=== PATIENT | male | born 1960 | race Caucasian/White ===

== ENCOUNTER 2018-03-08 09:35 | Emergency (ER) | payer OTHER ==
[~2018-03-08] VITALS: Ht 190.5 cm; Wt 93.0 kg
--- NOTE | 2018-03-08 09:39 | NUR ---
PT STATES HE DOES NOT TAKE HIS BP MEDS UNTIL THE EVENING.
[2018-03-08] MEDS ORDERED: BP MEDICATION (09:49)
--- NOTE | 2018-03-08 09:53 | ED Back Pain ---
General Chief Complaint: Back Problems Stated Complaint: FALL/BACK INJ Nursing Triage Note: ARRIVED VIA AMB WITH COMPLAINTS OF LOWER BACK PAIN AFTER FALLING BACKWARDS WHILE DOING A PT TEST FOR [employer]. Nursing Sepsis Screen: No Definite Risk Source of Information: Patient Exam Limitations: No Limitations History of Present Illness Date Seen by Provider: Mar 08, 2018 Time Seen by Provider: 09:45 Initial Comments Patient presents to ER by private conveyance with chief complaint that while doing a physical fitness test for the [employer] today he was pulling 100 pound weight and as he finished he released it and fell backwards landing squarely on his back. He heard and felt a popping sensation. He's having quite a bit of pain makes a funny lays down to get back up. He does not have a history of back problems nor is he had any surgeries on his back. Is a history of high blood pressure for which he takes lisinopril at night. He had no loss of control of bowel or bladder, saddle anesthesia, numbness, weakness. He took 2 ibuprofen 12 hours ago. This happened approximately 2 hours prior to arrival. Allergies and Home Medications Allergies Coded Allergies: No Known Drug Allergies (Unverified , 03/08/18) Home Medications Cyclobenzaprine HCl 10 Mg Tablet, 10 MG PO Q8H PRN for SPASMS Prescribed by: SWEETIE GRAY on 03/08/18 1052 Patient Home Medication List Home Medication List Reviewed: Yes Review of Systems Constitutional: No chills, No fever EENTM: No hearing loss, No ear pain Respiratory: No cough, No short of breath Cardiovascular: No chest pain, No edema Gastrointestinal: No abdominal pain, No nausea Genitourinary: No discharge, No dysuria Musculoskeletal: see HPI, back pain; No joint pain; muscle stiffness Skin: No pruritus, No rash Psychiatric/Neurological: Denies Headache, Denies Numbness, Denies Paresthesia Past [id number]-[id number]-Jklidb Hx Patient Social History Alcohol Use: Denies Use Recreational Drug Use: No Smoking Status: Never a Smoker Recent Foreign Travel: No Contact w/Someone Who Travel: No Recent Infectious Disease Expo: No Recent Hopitalizations: No Past Medical History Surgeries: Yes Appendectomy Respiratory: No Cardiac: Yes Hypertension Neurological: No Genitourinary: No Gastrointestinal: No Musculoskeletal: No Endocrine: No HEENT: No Cancer: No Integumentary: No Physical Exam Vital Signs Vital Signs - First Documented 03/08/18 09:39 Temp 98.0 Pulse 93 Resp 16 B/P (MAP) 183/125 (144) Pulse Ox 99 O2 Delivery Room Air Capillary Refill : Less Than 3 Seconds Height, Weight, BMI Height: 6'3.00" Weight: 205lbs. oz. 92.233620ww; BMI Method:Stated General Appearance: No Apparent Distress, WD/WN HEENT: Pharynx Normal, Moist Mucous Membranes Neck: Full Range of Motion, Normal Inspection Cardiovascular: Regular Rate, Rhythm, No Edema, Normal Peripheral Pulses Respiratory: No Accessory Muscle Use, No Respiratory Distress Back: Normal Inspection, No Vertebral Tenderness, Muscle Spasm (paraspinous muscles along L2 through L4 bilateral tender to palpation) Extremity: Normal Range of Motion, Non Tender Neurologic/Psychiatric: Alert, Oriented x3, No Motor/Sensory Deficits Skin: Normal Color, Warm/Dry Progress/Results/Core Measures Results/Orders My Orders Orders - SWEETIE GRAY Ketorolac Injection (Toradol Injection) (03/08/18 10:00) Lumbar Spine - 2-3 Views (03/08/18 09:48) Medications Given in ED Current Medications Medications Dose Ordered Sig/Nelson Route Start Time Stop Time Status Last Admin Dose Admin Ketorolac Tromethamine 30 mg ONCE ONCE IVP 03/08/18 10:00 03/08/18 10:01 DC 03/08/18 09:59 30 MG Vital Signs/I&O 03/08/18 09:39 Temp 98.0 Pulse 93 Resp 16 B/P (MAP) 183/125 (144) Pulse Ox 99 O2 Delivery Room Air Blood Pressure Mean: 144 Progress Progress Note : Time: 10:10 Progress Note Back pain after falling on it. The fracture is fairly unlikely but a plain film would be a low risk intervention at this time. We'll do some Toradol and we've offered her Norflex versus cyclobenzaprine and he's chosen to do the pills. We have given conservative counseling for low back pain sprain/strain management. There is no fracture than he can follow-up with primary care if he's not seeing improvement in 1-2 weeks. Diagnostic Imaging Diagonstic Imaging: Xray Plain Films/CT/US/NM/MRI: other (lumbar spine) Comments NAME: AUGUSTINE SHORT [facility] REC#: [id number] PT STATUS: REG ER : 1960 PHYSICIAN: SWEETIE GRAY MD ADMIT DATE: 03/08/18/ER Draft Date of Exam:03/08/18 LUMBAR SPINE - 2-3 VIEWS INDICATION: Status post fall during a drill, landed on buttocks. Pain. TECHNIQUE: AP, lateral, and spot imaging of the lumbar spine. CORRELATION STUDY: None. FINDINGS: There is a compression fracture deformity involving the superior L2 vertebral body. There is loss of approximately one-third to one-half of the vertebral body height. Features appear to be likely acute. The alignment of the lumbar spine is maintained. The remaining lumbar vertebral body heights are preserved. IMPRESSION: Findings consistent with likely acute compression fracture of the superior L2 vertebral body. There is loss of moderate vertebral body height. Dictated on workstation # [id number] Dict: 03/08/18 1030 Trans: 03/08/18 1044 [id number] Interpreted by: ENID ANDUJAR DO Electronically signed by: Reviewed: Reviewed by Me Departure Impression Primary Impression: Lumbar compression fracture Qualified Codes: S32.020A - Wedge compression fracture of second lumbar vertebra, initial encounter for closed fracture Disposition: HOME, SELF-CARE Condition: Stable Departure-Patient Inst. Decision time for Depature: 10:46 Referrals: AUGUSTINE FLOWERS,LOCAL PHYSICIAN (PCP) Primary Care Physician Patient Instructions: Vertebral Compression Fracture (DC) Add. Discharge Instructions: Use Tylenol 1000 mg every 8 hours for pain as necessary in addition to ibuprofen 800 mg every 8 hours as needed. You can also use heat and rest and a back brace. Follow-up the next week with orthopedic surgery by calling the clinic and requesting an appointment tomorrow. If you lose control of your bowels or bladder or have weakness or numbness then you should follow-up sooner. All discharge instructions reviewed with patient and/or family. Voiced understanding. Scripts Cyclobenzaprine HCl (Cyclobenzaprine HCl) 10 Mg Tablet 10 MG PO Q8H PRN for SPASMS, #20 TAB 0 Refills Prov: SWEETIE GRAY 03/08/18 Work/School Note: Work Release Form Date Seen in the Emergency Department: Mar 08, 2018 Return to Work: Mar 09, 2018 Restrictions: Need Release from Doctor Other Restrictions Listed Below: Light duty. No lifting over 10# until . Copy Copies To 1: AUGUSTINE FLOWERS TITUS J Mar 08, 2018 09:53
--- NOTE | 2018-03-08 09:59 | NUR ---
Hue juaresruss in [facility] - 03/08/18 at 1149 by PMCCLURE TO ROOM FLUIDS CON'T TO INFUSE TEXTING ON PHONE REPORTS THAT HER HEADACHE IS GONE,
[2018-03-08] MEDS ORDERED: KETOROLAC 30 MG/ML VIAL IVP ONE (10:00)
--- NOTE | 2018-03-08 10:44 | Diagnostic Imaging Report ---
INDICATION: Status post fall during a drill, landed on buttocks. Pain. TECHNIQUE: AP, lateral, and spot imaging of the lumbar spine. CORRELATION STUDY: None. FINDINGS: There is a compression fracture deformity involving the superior L2 vertebral body. There is loss of approximately one-third to one-half of the vertebral body height. Features appear to be likely acute. The alignment of the lumbar spine is maintained. The remaining lumbar vertebral body heights are preserved. IMPRESSION: Findings consistent with likely acute compression fracture of the superior L2 vertebral body. There is loss of moderate vertebral body height. Dictated by: Dictated on workstation # [id number]
[2018-03-08] MEDS ORDERED: CYCL10TA9 PO (10:52)
--- NOTE | 2018-03-08 11:05 | NUR ---
DR IN WITH PT AT THIS TIME.
[2018-03-08 11:26] VITALS: BP 183/125
== END 2018-03-08 11:26 | disposition home or self-care (01) ==
LOC: EDUNIT# 09:35 → ER 09:37
DX: S32.020A Wedge compression fracture of second lumbar vertebra, initial encounter for closed fracture (principal); I10 Essential (primary) hypertension; Z90.49 Acquired absence of other specified parts of digestive tract; W19.XXXA Unspecified fall, initial encounter; X50.1XXA Overexertion from prolonged static or awkward postures, initial encounter
CPT/HCPCS: 72100; 96374

== ENCOUNTER → 2018-05-12 | Outpatient (CLI) | payer OTHER ==
[~2018-05-12] MED LIST: BP MEDICATION; CYCL10TA9 PO
--- NOTE | 2018-05-12 11:30 | Diagnostic Imaging Report ---
INDICATION: Compression fracture. COMPARISON: None. FINDINGS: AP Spine L1-L4: [BMD (g/cm2): 1.001] [T-Score: -2.0] [Z-Score: -2.4] [BMD Previous: N/A] [BMD % Change: N/A] LT Hip Neck: [BMD (g/cm2): 0.921] [T-Score: -1.1] [Z-Score: -08] LT Hip Total: [BMD (g/cm2):0.978] [T-Score:-0.9] [Z-Score: -0.8] [BMD Previous: N/A] [BMD % Change: N/A] RT Hip Neck: [BMD (g/cm2):0.92] [T-Score:-1.1] [Z-Score:-0.7] RT Hip Total: [BMD (g/cm2):0.944] [T-score:-1.1] [Z-Score:-1.1] [BMD Previous:N/A] [BMD % Change:N/A] *Indicates significant change from prior examination based on 95% confidence level. World Health Organization criteria for BMD interpretation classify patients as Normal (T-score at or above -1.0), Osteopenic (T-score between -1.0 and -2.5) or Osteoporotic (T-score at or below -2.5). LIMITATIONS AND MODIFICATION: None. FRACTURE RISK (FRAX SCORE): The ten year probability of (%): Major Osteoporotic Fracture: [8.7] Hip Fracture: [0.7] IMPRESSION: 1. Osteopenia (Low bone mass). 2. Baseline examination. 3. See below National Osteoporosis Foundation guidelines on when to potentially initiate pharmacologic therapy. Based on the National Osteoporosis Foundation Guidelines, pharmacologic treatment should be initiated in any of the following, unless clinical conditions suggest otherwise: * Any patient with prior fragility fracture of the hip or vertebrae. A spine fracture indicates 5X risk for subsequent spine fracture and 2X risk for subsequent hip fracture. * Osteoporosis (T-score <-2.5). * Postmenopausal women and men age 50 and older with low bone mass/osteopenia (T-score between -1.0 and -2.5) by DXA and 10-year major osteoporotic fracture greater than 20% or a 10-year probability of hip fracture greater than 3%. These fracture risks are supplied above in the FRAX score, if applicable. * Clinician judgement and/or patient preferences may indicate treatment for people with 10-year fracture probabilities above or below these levels. Dictated by: Dictated on workstation # [id number]
== END ==
LOC: RAD 10:03
PROVIDERS: ATTEND Physician Assistant
DX: S32.020A Wedge compression fracture of second lumbar vertebra, initial encounter for closed fracture (principal); M85.89 Other specified disorders of bone density and structure, multiple sites
CPT/HCPCS: 77080

== ENCOUNTER 2018-08-20 10:46 | Outpatient (RCR) | payer OTHER | END 2018-08-25 14:44 | disposition home or self-care (01) | PROVIDERS: ATTEND Orthopaedic Surgery | DX: S32.020D Wedge compression fracture of second lumbar vertebra, subsequent encounter for fracture with routine healing (principal); W19.XXXD Unspecified fall, subsequent encounter ==